=== PATIENT | male | born 1955 | race African-American/Black ===

== ENCOUNTER 2021-10-16 15:40 | Inpatient (IN) | payer MEDICARE, MEDICAID ==
[~2021-10-16] VITALS: Ht 177.8 cm; Wt 114.5 kg
[2021-10-16] MEDS ORDERED: SODIUM CHLORIDE 0.9% 3,150 ML IV ONE (16:30)
[2021-10-16 17:00] LABS: BASOPHILS % (AUTO) 0.4 % (0.0-2.0); EOSINOPHILS % (AUTO) 0.1 % (1.0-6.0); HEMATOCRIT 41.4 % (41-53); HEMOGLOBIN 13.7 g/dL (13.5-17.5); LYMPHOCYTES # (AUTO) 0.9 K/uL (1.0-4.8); LYMPHOCYTES % (AUTO) 5.7 % (22.0-44.0); MEAN CORPUSCULAR HEMOGLOBIN 28.1 pg (26.0-34.0); MEAN CORPUSCULAR VOLUME 85 fL (80-100); MONOCYTES # (AUTO) 1.3 K/uL (0.1-1.0); MONOCYTES % (AUTO) 8.5 % (2.0-9.0); NEUTROPHILS # (AUTO) 13.4 K/uL (1.8-7.7); PLATELET COUNT (AUTO) 185 K/uL (150-450); RED BLOOD CELL COUNT(AUTO) 4.87 MIL/uL (4.50-5.90); RED CELL DISTRIBUTION WIDTH 13.8 % (11.5-14.5)
[2021-10-16 17:07] LABS: CALCIUM, TOTAL 8.7 mg/dL (8.8-10.5); CREATININE 2.07 mg/dL (0.60-1.30); POTASSIUM 4.2 mmol/L (3.5-5.1)
[2021-10-16 17:12] LABS: INR 1.1 (0.9-1.1); PROTHROMBIN TIME 11.5 SEC (9.4-11.6)
[2021-10-16 17:13] LABS: ALBUMIN 3.4 g/dL (3.4-5.0); BILIRUBIN,TOTAL 0.8 mg/dL (0.1-1.0); TOTAL PROTEIN, SERUM 6.7 g/dL (6.4-8.2)
[2021-10-16 17:14] LABS: NEUTROPHILS % (AUTO) 85.3 % (40.0-70.0)
[2021-10-16 17:16] LABS: LACTIC ACID 1.1 mmol/L (0.4-2.0)
[2021-10-16 17:24] LABS: COVID AG,FIA SOURCE NASAL SWAB
[2021-10-16] MEDS ORDERED: SODIUM CHLORIDE 0.9% 100 ML ONE (17:26)
[2021-10-16] MEDS ORDERED: IOHEXOL 350 MG/ML 150 ML VIAL ONE (17:26)
[2021-10-16 17:34] LABS: THYROID STIMULATING HORMONE 0.51 uIU/mL (0.36-3.74)
[2021-10-16] MEDS ORDERED: PIPERACILLIN SODIUM/TAZOBACTAM 4.5 GM in DEXTROSE 5%-WATER 100 ML IV ONE (20:00)
[2021-10-16] MEDS ORDERED: RINGERS SOLUTION,LACTATED 1,000 ML IV SCH (20:15)
[2021-10-16] MEDS ORDERED: ACETAMINOPHEN 325 MG TABLET PO PRN (20:15)
[2021-10-16] MEDS ORDERED: ONDANSETRON HCL 4 MG/2 ML VIAL IVP PRN (20:15)
[2021-10-16] MEDS ORDERED: SODIUM CHLORIDE 0.9% 1,000 ML IV ONE ×2 (20:15→21:15)
[2021-10-16] MEDS: SODIUM CHLORIDE 0.9% 1,000 ML IV SCH (21:53)
[2021-10-16] MEDS ORDERED: LIDOCAINE 5% TRANSDERMAL PATCH TD ONE (23:45)
[2021-10-16] MEDS: HEPARIN SODIUM,PORCINE 5,000 UNITS/ML VIAL SQ SCH (23:52)
[2021-10-17] MEDS ORDERED: SODIUM CHLORIDE 0.9% 500 ML IV ONE (01:00)
[2021-10-17] MEDS ORDERED: MIDODRINE HCL 5 MG TABLET PO ONE (01:15)
[2021-10-17] MEDS: PIPERACILLIN/TAZO 3.375 GM/D5W 50 ML IV SCH ×4 (03:21→23:11)
[2021-10-17] MEDS: SODIUM CHLORIDE 0.9% 1,000 ML IV SCH ×3 (06:09→21:51)
[2021-10-17] MEDS: HEPARIN SODIUM,PORCINE 5,000 UNITS/ML VIAL SQ SCH ×2 (08:01→16:23)
[2021-10-17] MEDS: MIDODRINE HCL 5 MG TABLET PO SCH ×2 (08:01→16:21)
[2021-10-17 08:09] LABS: BASOPHILS % (AUTO) 0.1 % (0.0-2.0); EOSINOPHILS % (AUTO) 0.5 % (1.0-6.0); HEMATOCRIT 36.3 % (41-53); HEMOGLOBIN 11.9 g/dL (13.5-17.5); LYMPHOCYTES # (AUTO) 1.5 K/uL (1.0-4.8); LYMPHOCYTES % (AUTO) 11.3 % (22.0-44.0); MEAN CORPUSCULAR HGB CONC 32.7 G/dL (31.0-37.0); MEAN CORPUSCULAR VOLUME 86 fL (80-100); MONOCYTES # (AUTO) 1.2 K/uL (0.1-1.0); MONOCYTES % (AUTO) 9.3 % (2.0-9.0); NEUTROPHILS # (AUTO) 10.1 K/uL (1.8-7.7); NEUTROPHILS % (AUTO) 78.8 % (40.0-70.0); PLATELET COUNT (AUTO) 174 K/uL (150-450); RED BLOOD CELL COUNT(AUTO) 4.23 MIL/uL (4.50-5.90); RED CELL DISTRIBUTION WIDTH 13.8 % (11.5-14.5)
[2021-10-17 08:17] LABS: CALCIUM, TOTAL 7.8 mg/dL (8.8-10.5); CREATININE 1.59 mg/dL (0.60-1.30); POTASSIUM 3.9 mmol/L (3.5-5.1)
[2021-10-17 08:23] LABS: ALBUMIN 2.5 g/dL (3.4-5.0); BILIRUBIN,TOTAL 0.4 mg/dL (0.1-1.0); TOTAL PROTEIN, SERUM 5.5 g/dL (6.4-8.2)
[2021-10-17] MEDS ORDERED: LIDOCAINE 5% TRANSDERMAL PATCH TD ONE (11:15)
[2021-10-17 20:45] VITALS: BP 130/75
[2021-10-17 23:45] VITALS: BP 115/65
[2021-10-18] MEDS: MIDODRINE HCL 5 MG TABLET PO SCH ×3 (00:03→16:57)
[2021-10-18] MEDS: HEPARIN SODIUM,PORCINE 5,000 UNITS/ML VIAL SQ SCH ×3 (00:03→16:57)
[2021-10-18 03:55] VITALS: BP 126/72
[2021-10-18] MEDS: PIPERACILLIN/TAZO 3.375 GM/D5W 50 ML IV SCH ×3 (04:11→15:12)
[2021-10-18] MEDS: SODIUM CHLORIDE 0.9% 1,000 ML IV SCH ×2 (05:48→13:31)
[2021-10-18 07:26] VITALS: BP 110/71
[2021-10-18 11:19] VITALS: BP 104/64
[2021-10-18] MEDS ORDERED: LIDOCAINE 5% TRANSDERMAL PATCH TD SCH (12:00)
[2021-10-18 16:06] VITALS: BP 113/68
[2021-10-18] MEDS ORDERED: MIDO5TAB29 PO (18:23)
[2021-10-18] MEDS ORDERED: -Lidoderm Patch Note- MISC (18:23)
[2021-10-18] MEDS ORDERED: AMOX-429 PO (18:23)
[2021-10-18] MEDS ORDERED: -LIDODERM PATCH NOTE- MISC SCH (21:00)
== END 2021-10-18 19:30 | disposition home or self-care (01) | DRG 315 ==
LOC: EMS 16:10 → 5N 10-17 18:04
PROVIDERS: ADMIT Internal Medicine; ATTEND Internal Medicine
DX: I95.9 Hypotension, unspecified (principal); R65.10 Systemic inflammatory response syndrome (SIRS) of non-infectious origin without acute organ dysfunction; N28.0 Ischemia and infarction of kidney; N26.1 Atrophy of kidney (terminal); I10 Essential (primary) hypertension; Q85.00 Neurofibromatosis, unspecified; Z20.822 Contact with and (suspected) exposure to COVID-19; M54.9 Dorsalgia, unspecified
CPT/HCPCS: 71275; 72148; 74175; 80053; 82533; 83605; 83880; 84443; 84484; 85025; 85610; 86850; 86900; 86901; 87040; 93005; 93306; 99291; J1644; J2543; J7030; J7040; J7050; J7060; J7120; Q9967

== ENCOUNTER 2022-09-05 17:18 | Emergency (ER) | payer MEDICARE, MEDICAID ==
[~2022-09-05] VITALS: Ht 180.3 cm; Wt 107.0 kg
[~2022-09-05 17:18] MED LIST: -Lidoderm Patch Note- MISC; AMOX-429 PO; MIDO5TAB29 PO
[2022-09-05] MEDS ORDERED: TAMS-13 PO (17:37)
[2022-09-05] MEDS ORDERED: LISI-893 PO (17:37)
[2022-09-05] MEDS ORDERED: SIMV-260 PO (17:37)
[2022-09-05] MEDS ORDERED: KETOROLAC TROMETHAMINE 10 MG TABLET PO ONE (18:30)
[2022-09-05 19:08] VITALS: BP 124/67
== END 2022-09-05 19:34 | disposition home or self-care (01) ==
LOC: EMS 17:25
DX: R10.30 Lower abdominal pain, unspecified (principal); I10 Essential (primary) hypertension
CPT/HCPCS: 99283